=== PATIENT | female | born 1975 | race Caucasian/White ===

== ENCOUNTER 2024-09-21 09:57 | Emergency (ER) | payer BC, SELFPAY ==
[2024-09-21 09:58] VITALS: BMI 33.7
[2024-09-21 10:09] VITALS: BP 141/100; PULSE 70; RESP 18; TEMP 36.7; O2SAT 97
--- NOTE | 2024-09-21 10:23 | PD.EDRME ---
Rapid Medical Screening Exam RME Arrival date/time: 09/21/24 09:57 Chief Complaint: Extremity Injury, Upper Vital signs: Vital Signs Temperature 98.1 F 09/21/24 10:09 Pulse Rate 70 09/21/24 10:09 Respiratory Rate 18 09/21/24 10:09 Blood Pressure 141/100 H 09/21/24 10:09 Pulse Oximetry (%) 97 09/21/24 10:09 Oxygen Delivery Method Room Air 09/21/24 10:09 Pulse ox is 97% room air Vital signs reviewed by provider: Yes RME Narrative: Patient awoke to right neck and shoulder pain. Patient status post brachial plexus injury to the right side.
--- NOTE | 2024-09-21 10:26 | XR_ITS ---
Examination: CT cervical spine without contrast 2-D sagittal reconstructions 2-D coronal reconstructions 3-D reconstructions. Exam date and time:September 21, 2024 1049 hours INDICATIONS: Neck pain beginning this morning CTDI:vol (mGy) 17.7 DLP: (mGycm) 394 Technique: Multiple 2 mm axial sections of the cervical spine have been obtained. The coronal and sagittal reconstructions have been obtained. 3-D reconstructions have been obtained. Low dose protocols were performed. One or more of the following dose reduction techniques were used; automated exposure control, adjustment of the mA and/or KV according to patient size, use of iterative reconstruction technique. Findings: Axial sections demonstrate intact base of the skull. C1 exhibit satisfactory relationship to the odontoid. No acute cervical vertebral body fracture seen. Alignment posterior spinous processes satisfactory. Mild disc narrowing C5-C6 Impression: No acute cervical fracture. Early degenerative disc disease C5-C6 If neck pain persists, consider elective MRI cervical spine without contrast follow-up
--- NOTE | 2024-09-21 10:26 | XR_ITS ---
Examination: Shoulder,right, 3 views Technique: Shoulder AP internal rotation, AP external rotation, Y view shoulder, 3 views Exam date and time :September 21, 2024 1028 hours INDICATIONS: Right shoulder pain today. FINDINGS: Moderate narrowing glenohumeral joint No shoulder fracture or dislocation. Mild right shoulder calcific tendinitis IMPRESSION: Moderate narrowing glenohumeral joint Mild right shoulder calcific tendinitis
[2024-09-21 11:40] LABS: HCG Qualitative,Urine Negative
--- NOTE | 2024-09-21 15:47 | EDNOTE_ITS ---
ED Extremity Problem RME/HPI General Chief complaint: Extremity Injury, Upper Stated complaint: RIGHT NECK/SHOULDER PAIN SINCE YESTERDAY Arrival date/time: 09/21/24 09:57 Limitations: no limitations RME / HPI RME / HPI Narrative: Patient awoke to right neck and shoulder pain. Patient status post brachial plexus injury to the right side. DR. WATERMAN MAIN ED EVALUATION: 49 year old female with history of work-related right brachial plexus injury 1 year ago presents to the ED for evaluation of right neck and right shoulder pain beginning last night. States she woke up with the pain and unsure if while sleeping had lifted her arm causing exacerbation of pain. States she placed her arm in a sling with minimal improvement. Otherwise, no other known modifying factors reported. No other injuries or complaints reported. States she has had EMJ, nerve conduction studies, CT scan and MRI after the injury. Not currently on any medications for the pain. Related Data Previous Rx's ?Medication ?Instructions ?Recorded gabapentin 100 mg capsule 100 mg PO BID pain #20 caps 09/21/24 (Neurontin) hydrocodone 5 mg-acetaminophen 325 1 tab PO Q8H PRN pa in #20 tabs 09/21/24 mg tablet prednisone 20 mg tablet See Taper PO QDAY allergic 0 09/21/24 reaction #18 tabs Allergies Allergy/AdvReac Type Severity Reaction Status Date / Time erythromycin base Allergy Severe Vomiting Verified 09/21/24 10:02 lisinopril Allergy Severe Joint Pain Verified 09/21/24 10:02 morphine Allergy Severe Anaphylaxis Verified 09/21/24 10:02 Review of Systems Review of Systems Systems Reviewed: All systems reviewed, normal except as documented Past Medical History Social History SMOKING STATUS: Former smoker ED Exam General Limitations: Present no limitations General appearance: Present alert and in no apparent distress Head Head exam: Present atraumatic Eye Eye exam: Present normal appearance, PERRL and EOMI ENT ENT exam: Present normal exam, normal oropharynx and mucous membranes moist Neck Neck exam: Present normal inspection, full ROM and trachea midline Chest Chest inspection: Present normal inspection and symmetric chest wall rise Respiratory Respiratory exam: Present normal lung sounds bilaterally Cardiovascular Cardiovascular exam: Present regular rate, normal rhythm and normal heart sounds Abdominal Exam Abdominal exam: Present soft and normal bowel sounds Extremities Exam Extremities exam: Present other (Right arm in a sling and would not allow me to examine ) Back Exam Back exam: Present full ROM and other (paraspinous tenderness +2) Neurological Exam Neurological exam: Present alert, oriented X3 and CN II-XII intact Psychiatric Psychiatric exam: Present normal affect and normal mood Skin Skin exam: Present warm, dry, intact and normal color Course Quality Measures none Orders Category Date Time Status CT cervical spine wo con Stat Exams 09/21/24 10:26 Completed XR shoulder RT min 2V Stat Exams 09/21/24 10:26 Completed HCG Qualitative,Urine Stat Lab 09/21/24 10:45 Completed MethylPREDNISolone.* [SoluMEDROL Inj] Med 09/21/24 15:56 Discontinued 125 mg IM X1 ONE Vital Signs Vital signs: Vital Signs Temperature 98.1 F 09/21/24 10:09 Pulse Rate 70 09/21/24 10:09 Respiratory Rate 18 09/21/24 10:09 Blood Pressure 141/100 H 09/21/24 10:09 Pulse Oximetry (%) 97 09/21/24 10:09 Oxygen Delivery Method Room Air 09/21/24 10:09 Pulse ox is 97% on room air which is adequate. Extremity Problem MDM Narrative MDM Narrative:: Peg Orellana am scribing for and in the presence of Dr. Waterman. Patient data External records reviewed:: None (No previous ED visits for review ) Clinical information provided by:: patient Social determinants that could affect healthcare access:: none Patient has the following chronic illnesses:: Right brachial plexus injury How is presenting disease/condition affected by chronic disease/condition?: exacerbated by Evaluation data The following diagnostics were reviewed and interpreted by me:: lab results and radiology exam(s) Lab and/or radiology exams considered but not ordered:: None Interpretation Summary: Ordering Physician: Naveed Conde PA-C Date of Service: 09/21/24 Procedure(s): CT cervical spine wo con Accession Number(s): [id number] cc: Antwan Castro MD; Naveed Conde PA-C~ Examination: CT cervical spine without contrast 2-D sagittal reconstructions 2-D coronal reconstructions 3-D reconstructions. Exam date and time:September 21, 2024 1049 hours INDICATIONS: Neck pain beginning this morning CTDI:vol (mGy) 17.7 DLP: (mGycm) 394 Technique: Multiple 2 mm axial sections of the cervical spine have been obtained. The coronal and sagittal reconstructions have been obtained. 3-D reconstructions have been obtained. Low dose protocols were performed. One or more of the following dose reduction techniques were used; automated exposure control, adjustment of the mA and/or KV according to patient size, use of iterative reconstruction technique. Findings: Axial sections demonstrate intact base of the skull. C1 exhibit satisfactory relationship to the odontoid. No acute cervical vertebral body fracture seen. Alignment posterior spinous processes satisfactory. Mild disc narrowing C5-C6 Impression: No acute cervical fracture. Early degenerative disc disease C5-C6 If neck pain persists, consider elective MRI cervical spine without contrast follow-up Dictated By: Antwan Castro MD Signed By: <Electronically signed by Antwan Castro MD in [place]> 09/21/24 1105 ======== Ordering Physician: Naveed Conde PA-C Date of Service: 09/21/24 Procedure(s): XR shoulder RT min 2V Accession Number(s): [id number] cc: Antwan Castro MD; Naveed Conde PA-C~ Examination: Shoulder,right, 3 views Technique: Shoulder AP internal rotation, AP external rotation, Y view shoulder, 3 views Exam date and time :September 21, 2024 1028 hours INDICATIONS: Right shoulder pain today. FINDINGS: Moderate narrowing glenohumeral joint No shoulder fracture or dislocation. Mild right shoulder calcific tendinitis IMPRESSION: Moderate narrowing glenohumeral joint Mild right shoulder calcific tendinitis Dictated By: Antwan Castro MD Signed By: <Electronically signed by Antwan Castro MD in [place]> 09/21/24 1055 Medications / Prescriptions Medications or Prescriptions considered but not ordered:: None Medication administrations:: Medication Administration History Discontinued Medications Methylprednisolone Sodium Succinate (Methylprednisolone Sod Succ 62.5 Mg/Ml 2ml Vial) 125 mg IM X1 ONE Stop: 09/21/24 15:57 none Consultations Consultation(s) initiated? (list below): No Diagnosis Most likely diagnosis given after review of the tests above:: Right brachial plexus injury Admission Indicated Admission indicated?: not indicated Admission Request Was there a request for admission?: No Disposition Plan Disposition Plan: Discharge Discharge Attestation Discharge Attestation: The patient and all family members were given an opportunity to ask questions and understood the discharge instructions. Discharge instructions specifically effects, indications for sooner follow up or return to the emergency department, and the expected course of current diagnosis. Patient condition: Stable Discharge Plan Plan Patient Disposition: HOME (Self Care) Prescriptions/Referrals Prescriptions/Med Rec: New gabapentin [Neurontin] 100 mg capsule 100 mg PO BID MDD 2 Qty: 20 0RF prednisone 20 mg tablet See Taper PO QDAY MDD 3 Qty: 18 0RF Taper: Prednisone Taper 20 mg DAILY for 2 Days and 0 Hour Rx Instructions: Take 3 Tabs q Day for 3 days then take 2 tabs q Day for 3 days then take 1 tablet q Day for 3 days then D/C hydrocodone-acetaminophen 5-325 mg tablet 1 tab PO Q8H MDD 3 PRN (Reason: pain) Qty: 20 0RF Referrals: No Primary/Family,Physician [Primary Care Provider] - In 1 week Problem List Clinical Impression: Brachial plexus injury, right Patient/Caregiver Discharge Instructions Additional Instructions: Follow-up with your primary care doctor in 3 to 5 days for recheck. You can return to the emergency department sooner if symptoms worsen or if you notice any new, concerning issues. Print Language: Albanian Stand Alone Forms: Terrie Award Info., Work/School Release, Patient Portal Info Letter
[2024-09-21] MEDS: MethylPREDNISolone SOD SUCC 62.5 MG/ML 2ML VIAL 125 MG IM (16:18)
== END 2024-09-21 16:26 | disposition home or self-care (01) ==
PROVIDERS: Physician Assistant; Emergency Provider Family Medicine
DX: S14.3XXA Injury of brachial plexus, initial encounter (principal); M75.31 Calcific tendinitis of right shoulder; M50.322 Other cervical disc degeneration at C5-C6 level; X58.XXXA Exposure to other specified factors, initial encounter
CPT/HCPCS: 72125; 73030; 81025; 96372; 99284; J2919